=== PATIENT | female | born 1935 | race Caucasian/White ===

== ENCOUNTER 2016-10-16 19:14 | Emergency (ER) | payer OTHER ==
[~2016-10-16] VITALS: Ht 149.9 cm; Wt 64.0 kg
[2016-10-16] MEDS ORDERED: CALTRATE 600 +1 EACH PO (19:56)
[2016-10-16] MEDS ORDERED: VITAMIN D1000 UNIT PO (19:57)
[2016-10-16] MEDS ORDERED: ASPIRIN81 M4 PO (19:57)
--- NOTE | 2016-10-16 21:58 | ED SKIN/ALLERGY COMPLAINT ---
History of Present Illness General Chief Complaint: Animal/Insect Bite Stated Complaint: TICK BITE Source: patient, old records Exam Limitations: no limitations Vital Signs & Intake/Output Vital Signs & Intake/Output Vital Signs Date Time Temp Pulse Resp B/P B/P Pulse O2 O2 Flow FiO2 Mean Ox Delivery Rate 10/17 2215 97.8 88 22 168/80 96 10/16 1953 98.6 92 20 171/90 98 Room Air Allergies Coded Allergies: No Known Allergies (10/16/16) Reconcile Medications Aspirin (Aspirin*) 81 MG TAB.CHEW 1 TAB PO DAILY HEART HEALTH (Reported) Calcium Carbonate/Vitamin D3 (Caltrate 600 + D Tablet) 600 MG-800 TABLET 1 TAB PO DAILY SUPPLEMENT (Reported) Cholecalciferol (Vitamin D3) (Vitamin D) 1,000 UNIT TABLET 1 TAB PO DAILY SUPPLEMENT (Reported) Triage Note: TRIAGE: PT TO ER C/C TICK BITE TO "PRIVATE AREA", NOTICED APPROX 17:00 TONIGHT. UNSURE IF SHE WAS ABLE TO REMOVE IT ALL. Triage Nurses Notes Reviewed? yes Onset: Abrupt Duration: day(s): (1), constant Timing: recent history Severity: mild Severity Numbers: 2 Location: genitalia Possible Factors: tick bite No Modifying Factors: none Associated Symptoms: denies HPI: 81-year-old female presents emergency room status post sustaining tick bite to the right side of her genitalia today. She was outside doing her work. She is not sure if she removed the tick in its entirety.. She denies any other complaints she denies noting any other rashes to her skin fever chills body aches no modifying factors or associated symptoms. No urinary complaints. Past History Travel History Traveled to [place] past 21 day No Medical History Any Pertinent Medical History? 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 No Review of Systems Review of Systems Constitutional: Reports: see HPI. All Other Systems: Reviewed and Negative Comments Review of systems: See HPI, All other systems negative. Constitutional, no chills no fever, no malaise HEENT: No visual changes no sore throat no congestion Cardiovascular: No chest pain , no palpitation Skin: no rashes, no change in skin Respiratory: No dyspnea no cough no sputu GI: No nausea no vomiting, no diarrhea : No dysuria No hematuria, no frequency, no discharge Muscle skeletal: No joint pain, no joint swelling, no back pain, no neck pain, Neurologic: No numbness, no headache Psych: No stress Heme/endocrine: No bruising Immunology: No lymphadenopathy Physical Exam Physical Exam General Appearance: well developed/nourished, no apparent distress, alert, awake Comments: Well-developed well-nourished patient in no apparent distress. HEENT: Atraumatic, extraocular motion intact Neck: Supple, FROM Back: FROM Cardiovascular: Regular rate and rhythms no murmurs rubs or gallops, Respiratory: No respiratory distress. Patient speaking in full complete sentences. Breath sounds clear to auscultation bilaterally: NO W/R/R Extremities: full range of motion Neuro: awake, alert, and oriented to person, place and time. There were no obvious focal neurologic abnormalities. 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 Progress Differential Diagnosis: abscess/cellulitis, allergic reaction, contact dermatitis, lyme disease, shingles, herpes Plan of Care: Current Medications Sig/Barbi Start time Last Medication Dose Stop Time Status Admin Doxycycline Hyclate 200 MG ONCE ONE 10/16 2214 AC (Vibramycin) 10/17 2215 Patient medicated with prophylactic doxycycline discussed with her plan of care return precautions she'll follow with her primary care physician she feels comfortable plan cleared for discharge (JACK VARGAS) Departure Departure Time of Disposition: 2202 Disposition: HOME OR SELF CARE Condition: Stable Clinical Impression Primary Impression: Tick bite Referrals: MACI ZAYAS,KARLENE Huynh (PCP/Family) Additional Instructions: As discussed you have been treated prophylactically with doxycycline for tick bite. Follow-up with her primary care physician and return to ER if he develop fever chills joint pain body aches or any other concerns. Departure Forms: Customer Survey General Discharge Information
[2016-10-16 22:16] VITALS: BP 168/80
== END 2016-10-16 22:25 ==
LOC: ERH 19:14
DX: S30.866A Insect bite (nonvenomous) of unspecified external genital organs, female, initial encounter (principal); W57.XXXA Bitten or stung by nonvenomous insect and other nonvenomous arthropods, initial encounter; Y93.89 Activity, other specified; Y92.9 Unspecified place or not applicable

== ENCOUNTER 2017-08-22 12:31 | Inpatient (IN) | payer OTHER ==
[~2017-08-22] VITALS: Ht 149.9 cm; Wt 65.1 kg
[~2017-08-22 12:31] MED LIST: ASPIRIN81 M4 PO; CALTRATE 600 +1 EACH PO; VITAMIN D1000 UNIT PO
[2017-08-22 13:07] LABS: ABSOLUTE BASOPHIL COUNT 0 /CUMM (0.0-0.2); ABSOLUTE EOSINOPHIL COUNT 0.2 /CUMM (0.0-0.7); ABSOLUTE GRANULOCYTE CT 8.1 /CUMM (1.4-6.5); ABSOLUTE LYMPH COUNT 0.7 /CUMM (1.2-3.4); BASOPHIL % 0.2 % (0.0-2.0); EOSINOPHIL % 2.2 % (0-5); GRANULOCYTE % 80.4 % (42.2-75.2); HEMATOCRIT 40.5 % (37-47); MEAN CORPUSCULAR HGB CONC 33.6 G/DL (33.0-37.0); MEAN CORPUSCULAR VOLUME 98.2 FL (81.0-99.0); MEAN PLATELET VOLUME 8.5 FL (7.4-10.4); PLATELET COUNT 257 /CUMM (130-400); RBC DISTRIBUTION WIDTH 14.4 % (11.5-14.5); RED BLOOD CELL CT 4.12 /CUMM (4.20-5.40)
[2017-08-22 13:14] LABS: PT 15.6 SEC (9.4-12.5); PTT 33 SEC (25-37)
[2017-08-22] MEDS ORDERED: TEGRETOL200 M1 PO ×2 (13:17→13:19)
--- NOTE | 2017-08-22 13:18 | ED CARDIAC/CP/PALPITATIONS ---
History of Present Illness General Chief Complaint: General Adult Stated Complaint: SIB DR GARCIA FOR NEW ONSET AFIB Source: patient, family Exam Limitations: no limitations Allergies Coded Allergies: No Known Allergies (10/16/16) Reconcile Medications Aspirin (Aspirin*) 81 MG TAB.CHEW 1 TAB PO DAILY HEART HEALTH (Reported) Calcium Carbonate/Vitamin D3 (Caltrate 600 + D Tablet) 600 MG-800 TABLET 1 TAB PO DAILY SUPPLEMENT (Reported) Carbamazepine (Tegretol) 200 MG TABLET 0.5 TAB PO DAILY UNKNOWN (Reported) Carbamazepine (Tegretol) 200 MG TABLET 1 TAB PO QPM UNKNOWN (Reported) Cholecalciferol (Vitamin D3) (Vitamin D) 1,000 UNIT TABLET 1 TAB PO DAILY SUPPLEMENT (Reported) Cyanocobalamin (Vitamin B-12) 1,000 MCG TABLET 1 TAB PO DAILY VITAMIN SUPPORT (Reported) Denosumab (Prolia) 60 MG/ML SYRINGE 1 INJ IM UNKNOWN (Reported) [place]-3 Fatty Acids/Fish Oil (Fish Oil 1,000 MG Capsule) 340 MG-1,000 MG CAPSULE 1 CAP PO DAILY SUPPLEMENT (Reported) Vit A/Vit C/Vit E/Zinc/Copper (Preservision Areds Tablet) 7,160-113 TABLET 1 TAB PO BID EYE (Reported) Triage Note: SIB DR GARCIA FOR NEW ONSET A FIB. PT DENIES CP/SOB. RECENT SWELLING IN RIGHT FOOT Triage Nurses Notes Reviewed? yes Onset: Abrupt Duration: day(s):, constant Timing: recent history Quality/Severity: moderate Radiation: no radiation HPI: 81-year-old female comes into the emergency room sent in by her central control room operator Dr. Garcia for new onset A. fib. She reports that she's been increasingly weak. She has some swelling to her right leg. Denies any current chest pain. Denies any shortness of breath. Denies any fever chills vomiting. (Oliver Melgoza) Vital Signs & Intake/Output Vital Signs & Intake/Output Vital Signs Date Time Temp Pulse Resp B/P B/P Pulse O2 O2 Flow FiO2 Mean Ox Delivery Rate 08/22 1510 110 114/65 08/22 1500 127 142/75 08/22 1449 123 08/22 1436 132 142/75 08/22 1343 139 113/56 08/22 1237 98.1 104 18 137/80 98 Room Air (Niurka ZAYAS,Yahir Huynh) Past History Travel History Traveled to [place] past 21 day No Medical History Any Pertinent Medical History? 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 No (Oliver Melgoza) Review of Systems Review of Systems Constitutional: Reports: no symptoms. EENTM: Reports: no symptoms. Respiratory: Reports: see HPI. Cardiovascular: Reports: see HPI. GI: Reports: no symptoms. Genitourinary: Reports: no symptoms. Musculoskeletal: Reports: see HPI. Skin: Reports: no symptoms. Neurological/Psychological: Reports: no symptoms. Hematologic/Endocrine: Reports: no symptoms. Immunologic/Allergic: Reports: no symptoms. All Other Systems: Reviewed and Negative (Oliver Melgoza) Physical Exam Physical Exam General Appearance: well developed/nourished, alert, awake Head: atraumatic Eyes: Bilateral: normal appearance. Ears, Nose, Throat: normal ENT inspection, hearing grossly normal Neck: normal inspection Respiratory: no respiratory distress Cardiovascular: tachycardia, irregularly irregular Gastrointestinal: soft Back: normal inspection Extremities: normal inspection, no edema Neurologic/Psych: awake, alert, oriented x 3, normal gait Skin: intact, normal color Core Measures ACS in differential dx? Yes CVA/TIA Diagnosis No Sepsis Present: No Sepsis Focused Exam Completed? No (Oliver Melgoza) Progress Differential Diagnosis: AMI, aortic dissection, atrial fibrillation, cholecystitis, costochondritis, hyperkalemia, intracranial hemorrhage, musculoskeletal pain, myocarditis, pancreatitis, pericarditis, pneumonia, pneumothorax, pulmonary embolism, PVCs/PACs, unstable angina, V-fib/V-Tach, WPW syndrome Diagnostic Imaging: Viewed by Me: Radiology Read, CT Scan, Ultrasound. Discussed w/RAD: Radiology Read, CT Scan, Ultrasound. Radiology Impression: PATIENT: LASHAE CROWE PRESENT AGE: 81 PATIENT ACCOUNT NO: [id number] : 35 LOCATION: [facility] ORDERING PHYSICIAN: Oliver LAINEZ SERVICE DATE: 08/22/17 EXAM TYPE: RAD - XRY-PORTABLE CHEST XRAY EXAMINATION: XR PORTABLE CHEST CLINICAL INFORMATION: Shortness of breath. Atrial fibrillation. COMPARISON: None TECHNIQUE: Portable frontal view of the chest was obtained. FINDINGS: The cardiac silhouette is moderately enlarged. There is uncoiling and atherosclerotic calcification of the aorta. There is cephalization of the pulmonary vasculature. No definite pneumonia. No pneumothorax or large pleural effusion. IMPRESSION: Moderately enlarged cardiac silhouette reflecting either cardiomegaly or pericardial effusion. Tortuous uncoiled thoracic aorta with calcification of the aortic knob. Cephalization of the pulmonary vasculature. DICTATED BY: Adan Hernandez MD DATE/TIME DICTATED:08/22/171356 NEUROLOGY DIRECTOR:RADHA DATE/TIME TRANSCRIBED:08/22/171356 CONFIDENTIAL, DO NOT COPY WITHOUT APPROPRIATE AUTHORIZATION. <Electronically signed in Other Vendor System> SIGNED BY: Adan Hernandez MD 08/22/17 1403, PATIENT: LASHAE CROWE PRESENT AGE: 81 PATIENT ACCOUNT NO: [id number] : 35 LOCATION: [facility] ORDERING PHYSICIAN: Oliver LAINEZ SERVICE DATE: 08/22/17 EXAM TYPE : US - US-UNILATERAL VENOUS DOPPLER EXAMINATION: US TRIPLEX LOWER EXTREMITY, RIGHT CLINICAL INFORMATION: Right lower extremity pain and swelling. COMPARISON: None TECHNIQUE: Color-flow triplex imaging with spectral analysis and compression Doppler were performed on the lower extremity. FINDINGS: There is thrombus in the calf veins extending into the popliteal vein and femoral vein in the distal thigh. The remainder of the femoral vein, the common femoral vein and profunda femoris vein show respiratory variation, normal compression and augmented flow. The visualized common femoral vein and uninvolved superficial femoral vein appear normal. There is no Bradshaw's cyst. IMPRESSION: Acute DVT in the calf veins extending into the popliteal vein and into the femoral vein, residential up the thigh. This critical result was discussed with FATOU Ang at 3:10 PM on the day of the exam and it was ascertained that the content and urgency of the report was understood at the time of direct communication. DICTATED BY: Manjit Frost MD DATE/TIME DICTATED:08/22/171500 NEUROLOGY DIRECTOR:RADHA DATE/TIME TRANSCRIBED:08/22/171500 CONFIDENTIAL, DO NOT COPY WITHOUT APPROPRIATE AUTHORIZATION. <Electronically signed in Other Vendor System> SIGNED BY: Manjit Frost MD 08/22/171525, PATIENT: LASHAE CROWE PRESENT AGE: 81 PATIENT ACCOUNT NO: [id number] : 35 LOCATION: [facility] ORDERING PHYSICIAN: Oliver LAINEZ SERVICE DATE: 08/22/17 EXAM TYPE: CAT - CTA CHEST-PULMONARY EMBOLISM EXAMINATION: CT ANGIOGRAM CHEST WITH AND WITHOUT CONTRAST (CT PULMONARY ANGIOGRAM FOR PE) CLINICAL INFORMATION: Shortness of breath, new atrial fibrillation. COMPARISON: 08/22/2017 chest x-ray. TECHNIQUE: Prior to contrast administration, noncontrast localization images were obtained. Subsequently, multidetector volumetric imaging was performed from the thoracic inlet to below the diaphragms following the administration of 95 mL Optiray 320 intravenous contrast. No contrast reaction reported. Sagittal, coronal, and MIP oblique sagittal reformatted images were obtained on the CT workstation, uploaded to PACS, and reviewed. Total exam dose-length product 240.20 mGy-cm. FINDINGS: QUALITY OF STUDY/ CONTRAST BOLUS: Suboptimal PULMONARY ARTERIES: No central or segmental pulmonary emboli. THORACIC AORTA: No aneurysm or dissection. Atherosclerotic calcifications of the thoracic aorta noted. LUNG: No focal consolidation, nodules or masses. Mild atelectatic changes at the right lung base and the medial left lower lobe noted. PLEURA: Trace right-sided pleural effusion. MEDIASTINUM: There is [id number] cardiomegaly. No pericardial effusion. There is a 1.1 cm right hilar lymph node as seen on axial image 166 from series 2 and coronal image 48. A 0.9 cm subcarinal lymph node is also present. No evidence of septal bowing or right heart strain. There are multiple small hypodense nodules in bilateral thyroid lobes. CHEST WALL/AXILLA: No axillary or internal mammary lymphadenopathy. OSSEOUS STRUCTURES: There is mild compression deformity of T11 vertebral body, better seen on sagittal image 49. Kyphotic changes of the spine also noted. UPPER ABDOMEN: A moderate to large size hiatal hernia is present. 2-3 calcified gallstones are present. The gallbladder is contracted. There is dilatation of CBD with maximum transverse diameter of 11 mm at the level of head of pancreas. No calcified CBD stone. Mild dilatation of the pancreatic duct is also noted. The region of the ampulla of Vater is not imaged in this exam. No reflux of contrast into the hepatic veins to suggest elevated right heart pressures. IMPRESSION: Suboptimal exam. Negative for PE. No evidence of aortic dissection or aneurysm. Mildly enlarged right hilar lymph node. Trace right-sided pleural effusion. Cardiomegaly. Moderate to large-sized hiatal hernia. Gallstones. Partial visualization of dilatation of CBD and main pancreatic duct. The region of the ampulla is not imaged in this exam. VTE: negative DICTATED BY: Jennifer Webb MD DATE/TIME DICTATED:08/22/171603 NEUROLOGY DIRECTOR:RADHA DATE/TIME TRANSCRIBED:08/22/171603 CONFIDENTIAL, DO NOT COPY WITHOUT APPROPRIATE AUTHORIZATION. <Electronically signed in Other Vendor System> SIGNED BY: Jennifer Webb MD 08/22/17 1657 Initial ED EKG: rate (140), AFIB, LBBB (Oliver Melgoza) Plan of Care: Orders Procedure Date/time Status Heart Healthy Diet 08/23 B Active Misc Message 08/22 1624 Active ED Holding Orders 08/22 1624 Active Admit to inpatient 08/22 1624 Active Vital Signs 08/22 1624 Active Code Status 08/22 1624 Active THYROID STIMULATING HORMONE 08/22 1250 Complete TROPONIN LEVEL 08/22 1250 Complete PARTIAL THROMBOPLASTIN TIME 08/22 1250 Complete PROTHROMBIN TIME 08/22 1250 Complete COMPREHENSIVE METABOLIC PANEL 08/22 1250 Complete CBC WITHOUT DIFFERENTIAL 08/22 1250 Complete EKG 08/22 1238 Active Current Medications Sig/Barbi Start time Last Medication Dose Stop Time Status Admin Diltiazem HCl 125 MG Q24H 08/22 1715 UNVr (Cardizem DRIP) Sodium Chloride 100 ML (Normal Saline 0.9%) Heparin Sodium 25,000 UNIT Q24H 08/22 1445 UNVr 08/22 (Porcine) 1507 (Heparin) Sodium Chloride 500 ML Laboratory Tests 08/22/17 1255: Anion Gap 11, Estimated GFR > 60, BUN/Creatinine Ratio 16.7, Glucose 109 H, Calcium 8.9, Total Bilirubin 0.8, AST 29, ALT 39, Alkaline Phosphatase 75, Troponin I 0.10, Total Protein 6.3, Albumin 3.0 L, Globulin 3.3, Albumin/ Globulin Ratio 0.9 L, TSH 1.590, PT 15.6 H, INR 1.43 H, APTT 33, CBC w Diff NO MAN DIFF REQ, RBC 4.12 L, MCV 98.2, MCH 33.0 H, MCHC 33.6, RDW 14.4, MPV 8.5, Gran % 80.4 H, Lymphocytes % 7.4 L, Monocytes % 9.8 H, Eosinophils % 2.2 , Basophils % 0.2, Absolute Granulocytes 8.1 H, Absolute Lymphocytes 0.7 L, Absolute Monocytes 1.0 H, Absolute Eosinophils 0.2, Absolute Basophils 0 (Niurka ZAYAS,Yahir Huynh) Departure Departure Disposition: STILL A PATIENT Condition: Stable Clinical Impression Primary Impression: Rapid atrial fibrillation Secondary Impressions: Deep vein thrombosis (DVT) of right lower extremity, New onset a-fib Referrals: Carrie ZAYAS,Fatuma Huynh (PCP/Family) Departure Forms: Customer Survey General Discharge Information Admission Note Spoke With: Bee ZAYAS PHD,Francisco Hendricks Documentation of Exam: Documentation of any treatments & extenuating circumstances including Concerns Regarding Discharge (functional status, medication knowledge or non-compliance, living conditions, etc.) that warrant an admission rather than observation: Patient will require IV heparin. Rate control. Cardiac consultation. Vascular consultation. Cardizem drip. Cardiac telemetry. Serial blood work. Echocardiogram. (Oliver Melgoza) PA/NAIL MILL WORKER Co-Sign Statement Statement: ED Attending supervision documentation- [X] I saw and evaluated the patient. I have also reviewed all the pertinent lab results and diagnostic results. I agree with the findings and the plan of care as documented in the PA's/NAIL MILL WORKER's documentation. Patient presents for evaluation of an irregular heartbeat (she was sent in by her central control room operator Dr. Garcia).. Physical examination reveals an irregular heart rhythm but otherwise no respiratory distress. [] I have reviewed the ED Record and agree with the PA's/NAIL MILL WORKER's documentation. [] Additions or exceptions (if any) to the PAs/NAIL MILL WORKER's note and plan are summarized below: [] (Niurka ZAYAS,Yahir Huynh) Critical Care Note Critical Care Note Critical Care Time: 30-74 min (45) (Mynor LAINEZ,Oliver)
[2017-08-22] MEDS ORDERED: FISH OIL 1,0001 EACH PO (13:19)
[2017-08-22] MEDS ORDERED: VITAMIN B-121000 MC3 PO (13:20)
[2017-08-22] MEDS ORDERED: PRESERVISION A1 EACH PO (13:20)
[2017-08-22] MEDS ORDERED: PROLIA60 MG/1 ML IM (13:22)
--- NOTE | 2017-08-22 14:03 | RADIOLOGY REPORT ---
EXAMINATION: XR PORTABLE CHEST CLINICAL INFORMATION: Shortness of breath. Atrial fibrillation. COMPARISON: None TECHNIQUE: Portable frontal view of the chest was obtained. FINDINGS: The cardiac silhouette is moderately enlarged. There is uncoiling and atherosclerotic calcification of the aorta. There is cephalization of the pulmonary vasculature. No definite pneumonia. No pneumothorax or large pleural effusion. IMPRESSION: Moderately enlarged cardiac silhouette reflecting either cardiomegaly or pericardial effusion. Tortuous uncoiled thoracic aorta with calcification of the aortic knob. Cephalization of the pulmonary vasculature.
--- NOTE | 2017-08-22 15:26 | ULTRASOUND REPORT ---
EXAMINATION: US TRIPLEX LOWER EXTREMITY, RIGHT CLINICAL INFORMATION: Right lower extremity pain and swelling. COMPARISON: None TECHNIQUE: Color-flow triplex imaging with spectral analysis and compression Doppler were performed on the lower extremity. FINDINGS: There is thrombus in the calf veins extending into the popliteal vein and femoral vein in the distal thigh. The remainder of the femoral vein, the common femoral vein and profunda femoris vein show respiratory variation, normal compression and augmented flow. The visualized common femoral vein and uninvolved superficial femoral vein appear normal. There is no Bradshaw's cyst. IMPRESSION: Acute DVT in the calf veins extending into the popliteal vein and into the femoral vein, senior care up the thigh. This critical result was discussed with FATOU Ang at 3:10 PM on the day of the exam and it was ascertained that the content and urgency of the report was understood at the time of direct communication.
--- NOTE | 2017-08-22 16:57 | CT SCAN REPORT ---
EXAMINATION: CT ANGIOGRAM CHEST WITH AND WITHOUT CONTRAST (CT PULMONARY ANGIOGRAM FOR PE) CLINICAL INFORMATION: Shortness of breath, new atrial fibrillation. COMPARISON: 08/22/2017 chest x-ray. TECHNIQUE: Prior to contrast administration, noncontrast localization images were obtained. Subsequently, multidetector volumetric imaging was performed from the thoracic inlet to below the diaphragms following the administration of 95 mL Optiray 320 intravenous contrast. No contrast reaction reported. Sagittal, coronal, and MIP oblique sagittal reformatted images were obtained on the CT workstation, uploaded to PACS, and reviewed. Total exam dose-length product 240.20 mGy-cm. FINDINGS: QUALITY OF STUDY/CONTRAST BOLUS: Suboptimal PULMONARY ARTERIES: No central or segmental pulmonary emboli. THORACIC AORTA: No aneurysm or dissection. Atherosclerotic calcifications of the thoracic aorta noted. LUNG: No focal consolidation, nodules or masses. Mild atelectatic changes at the right lung base and the medial left lower lobe noted. PLEURA: Trace right-sided pleural effusion. MEDIASTINUM: There is [id number] cardiomegaly. No pericardial effusion. There is a 1.1 cm right hilar lymph node as seen on axial image 166 from series 2 and coronal image 48. A 0.9 cm subcarinal lymph node is also present. No evidence of septal bowing or right heart strain. There are multiple small hypodense nodules in bilateral thyroid lobes. CHEST WALL/AXILLA: No axillary or internal mammary lymphadenopathy. OSSEOUS STRUCTURES: There is mild compression deformity of T11 vertebral body, better seen on sagittal image 49. Kyphotic changes of the spine also noted. UPPER ABDOMEN: A moderate to large size hiatal hernia is present. 2-3 calcified gallstones are present. The gallbladder is contracted. There is dilatation of CBD with maximum transverse diameter of 11 mm at the level of head of pancreas. No calcified CBD stone. Mild dilatation of the pancreatic duct is also noted. The region of the ampulla of Vater is not imaged in this exam. No reflux of contrast into the hepatic veins to suggest elevated right heart pressures. IMPRESSION: Suboptimal exam. Negative for PE. No evidence of aortic dissection or aneurysm. Mildly enlarged right hilar lymph node. Trace right-sided pleural effusion. Cardiomegaly. Moderate to large-sized hiatal hernia. Gallstones. Partial visualization of dilatation of CBD and main pancreatic duct. The region of the ampulla is not imaged in this exam. VTE: negative
--- NOTE | 2017-08-22 18:18 | History & Physical ---
See Addendum Magaly Bonds 08/22/171811: General Information and HPI MD Statement: I have seen and personally examined LASHAE CROWE and documented this H&P. The patient is a 81 year old F who presented with a patient stated chief complaint of [New onset A-fib]. Source of Information: patient, old records Exam Limitations: no limitations History of Present Illness: Ms. Crowe 81-year-old female with PMH of osteoporosis, trigeminal neuralgia currently on carbamazepine, macular degeneration, presented to ER with chief complaint of right leg swelling (noticed by her daughter) starting last Tuesday prior to this admission, and lightheadedness, and chest discomfort, however 89 and shortness of breath. Patient follow-up with Dr. Gamboa, and was found to have irregularly irregular heart rhythm was possibly consistent with new onset atrial fibrillation which is confirmed by EKG in office, and was subsequently sent to the ER for further evaluation. Patient denied fever/night sweat/weight change/mood change/insomnia, dietary/ appetite change. Patient denied cough/SOB/exercise intolerance/Abdominal pain, bowel movement/ urinary abnormality, or other skin/musculoskeletal/neurological disorders. At baseline patient was independent of ADLs and IADLs. Allergies/Medications Allergies: Coded Allergies: No Known Allergies (10/16/16) Home Med list Aspirin (Aspirin*) 81 MG TAB.CHEW 1 TAB PO DAILY HEART HEALTH (Reported) Calcium Carbonate/Vitamin D3 (Caltrate 600 + D Tablet) 600 MG-800 TABLET 1 TAB PO DAILY SUPPLEMENT (Reported) Carbamazepine (Tegretol) 200 MG TABLET 0.5 TAB PO DAILY UNKNOWN (Reported) Carbamazepine (Tegretol) 200 MG TABLET 1 TAB PO QPM UNKNOWN (Reported) Cholecalciferol (Vitamin D3) (Vitamin D) 1,000 UNIT TABLET 1 TAB PO DAILY SUPPLEMENT (Reported) Cyanocobalamin (Vitamin B-12) 1,000 MCG TABLET 1 TAB PO DAILY VITAMIN SUPPORT (Reported) Denosumab (Prolia) 60 MG/ML SYRINGE 1 INJ IM UNKNOWN (Reported) [place]-3 Fatty Acids/Fish Oil (Fish Oil 1,000 MG Capsule) 340 MG-1,000 MG CAPSULE 1 CAP PO DAILY SUPPLEMENT (Reported) Vit A/Vit C/Vit E/Zinc/Copper (Preservision Areds Tablet) 7,160-113 TABLET 1 TAB PO BID EYE (Reported) Past History Travel History Traveled to [place] past 21 day No Medical History Neurological: NONE EENT: macular degeneration Cardiovascular: NONE Respiratory: NONE Gastrointestinal: NONE Hepatic: NONE Renal: NONE Musculoskeletal: osteoporosis Psychiatric: NONE Endocrine: NONE Blood Disorders: NONE Cancer(s): NONE 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 Exam & Diagnostic Data Last 24 Hrs of Vital Signs/I&O Vital Signs Date Time Temp Pulse Resp B/P B/P Pulse O2 O2 Flow FiO2 Mean Ox Delivery Rate 08/22 1510 110 114/65 08/22 1500 127 142/75 08/22 1449 123 08/22 1436 132 142/75 08/22 1343 139 113/56 08/22 1237 98.1 104 18 137/80 98 Room Air Intake & Output 08/22 1600 08/22 0800 08/22 0000 Intake Total Output Total 250 Balance -250 Output, Urine 250 Patient 63.503 kg Weight Weight Reported by Patient Measurement Method Physical Exam General Appearance Alert, Oriented X3, Cooperative, No Acute Distress Skin No Rashes, No Breakdown, No Significant Lesion Skin Temp/Moisture Exam: Warm/Dry Sepsis Skin Exam (color): Normal for Ethnicity HEENT Atraumatic, PERRLA, EOMI Neck Supple, No JVD Cardiovascular Irregularly irregualr tachycardia Lungs Clear to Auscultation, Normal Air Movement Abdomen Normal Bowel Sounds, Soft, No Tenderness Neurological Normal Speech, Strength at 5/5 X4 Ext Extremities No Edema, Normal Pulses, RLE calf swelling however not tender upon pressing Last 24 Hrs of Labs/Edwin: Laboratory Tests 08/22/17 1255: Anion Gap 11, Estimated GFR > 60, BUN/Creatinine Ratio 16.7, Glucose 109 H, Calcium 8.9, Total Bilirubin 0.8, AST 29, ALT 39, Alkaline Phosphatase 75, Troponin I 0.10, Total Protein 6.3, Albumin 3.0 L, Globulin 3.3, Albumin/ Globulin Ratio 0.9 L, TSH 1.590, PT 15.6 H, INR 1.43 H, APTT 33, CBC w Diff NO MAN DIFF REQ, RBC 4.12 L, MCV 98.2, MCH 33.0 H, MCHC 33.6, RDW 14.4, MPV 8.5, Gran % 80.4 H, Lymphocytes % 7.4 L, Monocytes % 9.8 H, Eosinophils % 2.2 , Basophils % 0.2, Absolute Granulocytes 8.1 H, Absolute Lymphocytes 0.7 L, Absolute Monocytes 1.0 H, Absolute Eosinophils 0.2, Absolute Basophils 0 Assessment/Plan Assessment: Ms. Crowe 81-year-old female with PMH of osteoporosis, trigeminal neuralgia currently on carbamazepine, macular degeneration, presented to ER with chief complaint of right leg swelling (noticed by her daughter) starting last Tuesday prior to this admission, and lightheadedness, and chest discomfort, however 89 and shortness of breath. Patient follow-up with Dr. Gamboa, and was found to have irregularly irregular heart rhythm was possibly consistent with new onset atrial fibrillation which is confirmed by EKG in office, and was subsequently sent to the ER for further evaluation. On admission, Vitals: Stable, BP 114/65 -CBC: Unremarkable, PT/INR 15.6/1.43 -BMP: Unremarkable -CXR: Moderately enlarged cardiac silhouette reflecting either cardiomegaly or pericardial effusion. Tortuous uncoiled thoracic aorta with calcification of the aortic knob. Cephalization of the pulmonary vasculature. -RLE Dopper: Acute DVT in the calf veins extending into the popliteal vein and into the femoral vein, fdc up the thigh. -CTA: negative for PE -EKG: A-fib tachy w/ LBBB -Interventions in ER: Cardizem 10 mg IV push 2, heparin 4000 units IV 1 Assessment: Ms. Crowe 81-year-old female with PMH of osteoporosis, trigeminal neuralgia currently on carbamazepine, macular degeneration, presented to ER for further evaluation of new onset A. fib from Dr. Gamboa's office, and was found to have incidental DVT on right lower extremity, recent concerns of possible PE as well given patient's new onset A. fib without any particular triggers. Problem list #RLE DVT #New-onset A. fib #Past medical history Plan - Admit to telemetry for continuous telemetry monitoring - Trend EKG/Trop x 2 to peak. neuralgia of heart rate DVT prophylaxis Heparin drip Heart healthy diet DNR/DNI As Ranked By This Provider Problem List: 1. New onset a-fib Core Measures/Misc (02/13) Acute Coronary Syndrome ACS Diagnosis: No Congestive Heart Failure Congestive Heart Failure Diagnosis No Cerebrovascular Accident CVA/TIA Diagnosis: No VTE (View Protocol) VTE Risk Factors Age>40 No Mechanical VTE Prophylaxis d/t DVT (suspected/known) No VTE Pharm Prophylaxis d/t NA PharmProphylax ordered Sepsis (View protocol) Sepsis Present: No Sudhir White MD 08/22/17 5013: Resident Review Statement Resident Statement: examined this patient, discussed with medical intern Other Findings: Patient is an 81-year-old female with significant past medical history of trigeminal neuralgia(June 2016, on carbamazepine), osteoporosis(on Prolia), macular degeneration( preserved vision), sent by Dr. Gamboa for management of acute onset atrial fibrillation. History is taken from the patient. According to her she was completely healthy until June, when she was diagnosed as having trigeminal neuralgia and started on carbamazepine. She was feeling woozy although able to do all her household activity. She noticed swelling on his right foot on Tuesday. That was not affecting her daily activity though she was feeling charley horse. She talked to Dr. Gamboa over the phone, who advised to visit him. At the Dr. Gamboa's office EKG was done which show evidence of new onset atrial fibrillation. Patient denies any chest pain, shortness of breath, palpitation, dizziness, lightheadedness,trauma. She does feels generalized weakness denies for any weakness in any part of the body. Of note patient was also complaining of having cold around 15 days ago,which she treated by herself by using Delsym 12 hours. Personal history-She is very active at baseline, lives at a elderly home at [facility] [place], denies smoking, alcohol use or illicit drug abuse. Family history - father had history of lung cancer secondary to smoking and at the age of 69, mother had history of diabetes and at the age of 98 year. ED course- Vital signs-temperature 98.1, pulse 104, respiratory 18, blood pressure 137/80, SPO2 98% on room air EKG showed-left bundle branch block, heart rate of 110, atrial fibrillation.She was given IV Cardizem 125 mg and heparin drip. Blood work obtained showed -WBC 10.0, RBC 4.12, hemoglobin 13.6, platelet count 257, serum sodium 137, potassium 3.7, chloride 99, anion gap 11, BUN 10, creatinine 0.6, glucose 109, calcium 8.9, total bilirubin 0.8, AST 29, ALT 39, alkaline phosphatase 75, troponin I 0.10, total protein 6.3, albumin 3.0, globulin 3.3, PT/INR 15.6/1.43, APTT 33. Chest x-ray - * Moderately enlarged cardiac silhouette reflecting either cardiomegaly or pericardial effusion. * Tortuous uncoiled thoracic aorta with calcification of the aortic knob. * Cephalization of the pulmonary vasculature. Color Doppler - right lower extremity-acute DVT in the calf vein extending from popliteal vein into the femoral vein fdc upto the thigh CTA -Suboptimal exam. Negative for PE.No evidence of aortic dissection or aneurysm.Mildly enlarged right hilar lymph node.Trace right-sided pleural effusion.Cardiomegaly.Moderate to large-sized hiatal hernia.Gallstones.Partial visualization of dilatation of CBD and main pancreatic duct. The region of the ampulla is not imaged in this exam. Assessment and plan- New onset atrial fibrillation - * We will admit the patient to telemetry floor * We will start patient on injection Cardizem drip * We will continue patient on injection heparin * We will watch for the bleeding * Troponins and EKG till get peak. * We will follow the echocardiogram Right lower extremity DVT * We will continue IV heparin drip * keep lower leg elevated * Pain medication according to pain scale. History of trigeminal neuralgia * As per Dr. Gamboa will change it to Tegretol ER 200 mg daily for next 3-6 months Code status-full code DVT prophylaxis-heparin drip Diet -Heart healthy diet
--- NOTE | 2017-08-22 18:48 | Cons- Cardiology ---
General Information and HPI Consulting Request Date of Consult: 08/22/17 Requested By: ER History of Present Illness: The patient is a 81 year old female who presents with facial pain. Noemy is an 81 year old female with no significant prior medical history. I initially saw this patient for a severe discomfort over her right face in the territory of the trigeminal nerve. The discomfort was described as a sharp, severe discomfort that was exacerbated by talking, eating and touching. She did have this once before and it fortunately resolved on its own at that time. The patient has been seeing a dentist who has not been able to find a dental reason for the discomfort. I felt that she had trigeminal neuralgia and started her on Carbamazepine and this symptom resolved. At baseline, Noemy is otherwise active and can walk briskly and garden. Over the past week she noted right leg swelling, lightheadedness and chest discomfort. She denies shortness of breath but she states that she is not doing anything lately. She does have some arthritic discomfort in her knees. In the office the patient was noted to have an irregularly irregular heart rhythm with fast rate consistent with atrial fibrillation that was confirmed by an ECG. Allergies/Medications Allergies: Coded Allergies: No Known Allergies (10/16/16) Home Med List: Aspirin (Aspirin*) 81 MG TAB.CHEW 1 TAB PO DAILY HEART HEALTH (Reported) Calcium Carbonate/Vitamin D3 (Caltrate 600 + D Tablet) 600 MG-800 TABLET 1 TAB PO DAILY SUPPLEMENT (Reported) Carbamazepine (Tegretol) 200 MG TABLET 0.5 TAB PO DAILY UNKNOWN (Reported) Carbamazepine (Tegretol) 200 MG TABLET 1 TAB PO QPM UNKNOWN (Reported) Cholecalciferol (Vitamin D3) (Vitamin D) 1,000 UNIT TABLET 1 TAB PO DAILY SUPPLEMENT (Reported) Cyanocobalamin (Vitamin B-12) 1,000 MCG TABLET 1 TAB PO DAILY VITAMIN SUPPORT (Reported) Denosumab (Prolia) 60 MG/ML SYRINGE 1 INJ IM UNKNOWN (Reported) [place]-3 Fatty Acids/Fish Oil (Fish Oil 1,000 MG Capsule) 340 MG-1,000 MG CAPSULE 1 CAP PO DAILY SUPPLEMENT (Reported) Vit A/Vit C/Vit E/Zinc/Copper (Preservision Areds Tablet) 7,160-113 TABLET 1 TAB PO BID EYE (Reported) Review of Systems Review of Systems: A review of systems is unremarkble. 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 Mother: diabetes, Father: of cancer. Psychosocial History Smoking Status: Never Smoked ETOH Use: denies use Illicit Drug Use: denies illicit drug use Exam & Diagnostic Data Vital Signs and I&O Vital Signs Date Time Temp Pulse Resp B/P B/P Pulse O2 O2 Flow FiO2 Mean Ox Delivery Rate 08/22 1837 129 08/22 1510 110 114/65 08/22 1500 127 142/75 08/22 1449 123 08/22 1436 132 142/75 08/22 1343 139 113/56 08/22 1237 98.1 104 18 137/80 98 Room Air Intake & Output 08/22 1600 08/22 0800 08/22 0000 08/21 1600 08/21 0800 08/21 0000 Intake Total Output Total 250 Balance -250 Output, Urine 250 Patient 140 lb Weight Weight Reported by Patient Measurement Method Physical Exam: General: WD/WN female in NAD; alert and oriented x 3 HEENT: NC/AT, PERRL, EOMI Neck: no JVD, no carotid bruit Heart: irregularly irregular with 2/6 systolic murmur Lungs: clear bilaterally Abdomen: soft, NT, +ve bowel sounds Extremities: 2+ right lower extremity edema Assessment/Plan Assessment/Plan Hypertension. This patient has a normal blood pressure today but she is nonetheless lightheaded. Her history of hypertension does put her at risk of atrial fibrillation. I do suspect that hypertension is a real issue however due to my auscultation of an S4 and based on LVH noted on her ECG both noted on her last visti. I recommended a low sodium diet. At present, her pressure is likely improved due to her tachycardia. Facial pain. This patient has facial pain that is due to trigeminal neuralgia. We will change to Tegretol ER 200mg daily. My intention is to continue this medication for three to six months depending on its response. Right leg swelling. This patient will need to be evaluated for a DVT. Although the patient does not have any shortness of breath at her minimal level of activity, I do have some concern that she may have experienced a pulmonary embolism that put her into atrial fibrillation. We will check a D-dimer and ABG in addition to a lower extremity ultrasound. If any of these are abnormal then we will pursue a CT angiogram to assess for a PE. Atrial Fibrillation. New onset atrial fibrillation with rapid heart rate. Will assess for a PE as a cause of A. Fib. Obtrain a D-dimer, ABG and LE ultrasound. If any of these are abrnormal then obtain a CT angiogram. Begin IV cardizem. Follow cardiac enzymes for three sets or until they peak. Check a TSH and free T4. Begin IV heparin. Obtain an echocardiogram. Consult Acknowledgment - Thank you for your consult request.
[2017-08-22 21:52] LABS: PTT > 120 SEC (25-37)
[2017-08-22 22:12] VITALS: BP 120/90
[2017-08-23 01:08] VITALS: BP 114/70
[2017-08-23 05:56] LABS: PTT 64 SEC (25-37)
[2017-08-23 06:38] VITALS: BP 124/70
--- NOTE | 2017-08-23 07:46 | PN- Housestaff ---
See Addendum Subjective Follow-up For: #RLE DVT #New-onset A. fib #Past medical history Tele-Events Since Last Visit: Mostly A-fib 80-130s reverted to NSR 50-80s aroudn 0722 this AM. Subjective: no overnight event. Patient had no specific complaint. She felt improved on her swelling of right ankle, with less soreness. Review of Systems Constitutional: Reports: see HPI. Objective Last 24 Hrs of Vital Signs/I&O Vital Signs Date Time Temp Pulse Resp B/P B/P Pulse O2 O2 Flow FiO2 Mean Ox Delivery Rate 08/23 0638 98.6 90 20 124/70 91 Room Air 08/23 0108 114/70 08/22 2212 98.6 110 18 120/90 95 Room Air 08/22 2200 Room Air 08/22 2106 98.3 107 15 100/59 94 Room Air 08/22 1930 112 08/22 1837 129 08/22 1700 98 Room Air 08/22 1510 110 114/65 08/22 1500 127 142/75 08/22 1449 123 08/22 1436 132 142/75 08/22 1343 139 113/56 08/22 1237 98.1 104 18 137/80 98 Room Air Intake & Output 08/23 1600 08/23 0800 08/23 0000 Intake Total 234 Output Total 300 150 Balance -66 -150 Intake, IV 184 Intake, Oral 50 Output, Urine 300 150 Patient 62.823 kg Weight Weight Bed scale Measurement Method Physical Exam General Appearance: Alert, Oriented X3, Cooperative, No Acute Distress Cardiovascular: Regular Rate Lungs: Clear to Auscultation, Normal Air Movement Abdomen: Soft, No Tenderness Neurological: Normal Speech, Strength at 5/5 X4 Ext Extremities: No Edema, Normal Pulses, RLE swelling luisa at ankle, however no tenderness on palpation. Current Medications: Current Medications Sig/Barbi Start time Last Medication Dose Route Stop Time Status Admin Acetaminophen 0 .STK-MED ONE 08/22 1608 DC IV Aspirin 81 MG DAILY 08/23 1000 AC PO Carbamazepine 200 MG DAILY 08/22 194 AC 08/22 PO 2034 Diltiazem HCl 0 .STK-MED ONE 08/22 1744 DC .ROUTE Diltiazem HCl 125 MG Q24H 08/22 171 AC 08/22 Sodium Chloride 100 ML IV 1836 Diltiazem HCl 10 MG ONCE ONE 08/22 1445 DC 08/22 IV PUSH 08/22 1446 1500 Diltiazem HCl 0 .STK-MED ONE 08/22 1344 DC .ROUTE Diltiazem HCl 10 MG ONCE ONE 08/22 1330 DC 08/22 IV PUSH 08/22 1331 1343 Heparin Sodium 0 .STK-MED ONE 08/22 1500 DC (Porcine) .ROUTE Heparin Sodium 4,000 UNIT ONCE ONE 08/22 1445 DC 08/22 (Porcine) IV 08/22 1446 1508 Heparin Sodium 25,000 UNIT Q24H 08/22 1445 AC 08/22 (Porcine) IV 1507 Sodium Chloride 500 ML Lorazepam 0 .STK-MED ONE 08/22 1608 DC .ROUTE Last 24 Hrs of Lab/Edwin Results Last 24 Hrs of Labs/Mics: Laboratory Tests 08/23/17 0650: Troponin I 0.18 *H, CBC w Diff Pending, WBC Pending, RBC Pending, Hgb Pending, Hct Pending, MCV Pending, MCH Pending, MCHC Pending, RDW Pending, Plt Count Pending, MPV Pending 08/23/17 0515: Triglycerides 88, Cholesterol 120, LDL Cholesterol, Calc 78, HDL Cholesterol 25 L, Cholesterol/HDL Ratio 4.8 H, APTT 64 H 08/23/17 0100: Troponin I 0.21 *H 08/22/17 2300: Troponin I Cancelled 08/22/17 2100: APTT > 120 *H 08/22/17 1936: Troponin I 0.15 *H 08/22/17 1255: Anion Gap 11, Estimated GFR > 60, BUN/Creatinine Ratio 16.7, Glucose 109 H, Calcium 8.9, Total Bilirubin 0.8, AST 29, ALT 39, Alkaline Phosphatase 75, Troponin I 0.10, Total Protein 6.3, Albumin 3.0 L, Globulin 3.3, Albumin/ Globulin Ratio 0.9 L, TSH 1.590, Thyroxine (T4) 8.4, Free T3 4.4, PT 15.6 H, INR 1.43 H, APTT 33, CBC w Diff NO MAN DIFF REQ, RBC 4.12 L, MCV 98.2, MCH 33.0 H, MCHC 33.6, RDW 14.4, MPV 8.5, Gran % 80.4 H, Lymphocytes % 7.4 L, Monocytes % 9.8 H, Eosinophils % 2.2, Basophils % 0.2, Absolute Granulocytes 8.1 H, Absolute Lymphocytes 0.7 L, Absolute Monocytes 1.0 H, Absolute Eosinophils 0.2, Absolute Basophils 0 Assessment/Plan Assessment: Ms. Alonzo 81-year-old female with PMH of osteoporosis, trigeminal neuralgia currently on carbamazepine, macular degeneration, presented to ER with chief complaint of right leg swelling (noticed by her daughter) starting last Tuesday prior to this admission, and lightheadedness, and chest discomfort, however 89 and shortness of breath. Patient follow-up with Dr. Gamboa, and was found to have irregularly irregular heart rhythm was possibly consistent with new onset atrial fibrillation which is confirmed by EKG in office, and was subsequently sent to the ER for further evaluation. On admission, Vitals: Stable, BP 114/65 -CBC: Unremarkable, PT/INR 15.6/1.43 -BMP: Unremarkable -CXR: Moderately enlarged cardiac silhouette reflecting either cardiomegaly or pericardial effusion. Tortuous uncoiled thoracic aorta with calcification of the aortic knob. Cephalization of the pulmonary vasculature. -RLE Dopper: Acute DVT in the calf veins extending into the popliteal vein and into the femoral vein, residential up the thigh. -CTA: negative for PE -EKG: A-fib tachy w/ LBBB -Interventions in ER: Cardizem 10 mg IV push 2, heparin 4000 units IV 1 Assessment: Ms. Alonzo 81-year-old female with PMH of osteoporosis, trigeminal neuralgia currently on carbamazepine, macular degeneration, presented to ER for further evaluation of new onset A. fib from Dr. Gamboa's office, and was found to have incidental DVT on right lower extremity, recent concerns of possible PE as well given patient's new onset A. fib without any particular triggers. Problem list #RLE DVT #New-onset A. fib #Past medical history Plan - Continue telemetry monitoring, patient is now reverted to NSR. - Trend EKG/Trop x 2 to peak at 0.21 and trended down to 0.18 on latest lab. No EKG findings, likely due to demand ischemia. neuralgia heart rate DVT prophylaxis Heparin drip Heart healthy diet DNR/DNI Problem List: 1. Deep vein thrombosis (DVT) of right lower extremity 2. New onset a-fib 3. Rapid atrial fibrillation Pain Ratin Pain Location: NA Pain Goal: Remain pain free Pain Plan: see AP Tomorrow's Labs & Rationales: NA
[2017-08-23 08:31] LABS: ABSOLUTE BASOPHIL COUNT 0.1 /CUMM (0.0-0.2); ABSOLUTE EOSINOPHIL COUNT 0.5 /CUMM (0.0-0.7); ABSOLUTE GRANULOCYTE CT 5.2 /CUMM (1.4-6.5); ABSOLUTE LYMPH COUNT 1.2 /CUMM (1.2-3.4); BASOPHIL % 0.8 % (0.0-2.0); GRANULOCYTE % 65.6 % (42.2-75.2); MEAN CORPUSCULAR HGB 33.4 PG (27.0-31.0); MEAN CORPUSCULAR HGB CONC 33.8 G/DL (33.0-37.0); PLATELET COUNT 207 /CUMM (130-400); RBC DISTRIBUTION WIDTH 14.4 % (11.5-14.5); RED BLOOD CELL CT 3.57 /CUMM (4.20-5.40)
[2017-08-23 09:13] LABS: HEMATOCRIT 35.3 % (37-47)
[2017-08-23 14:00] VITALS: BP 110/58
--- NOTE | 2017-08-23 18:06 | PN- Cardiology ---
Subjective Subjective: * [place] feels much improved. No leg discomfort, shortness of breath or chest pain. * Patient converted to a sinus rhythm. * Mildly increased troponin. * Extensive DVT noted on ultrasound Objective Vital Signs and I&Os Vital Signs Date Time Temp Pulse Resp B/P B/P Pulse O2 O2 Flow FiO2 Mean Ox Delivery Rate 08/23 1400 98.5 76 18 110/58 92 Room Air 08/23 0638 98.6 90 20 124/70 91 Room Air 08/23 0108 114/70 08/22 2212 98.6 110 18 120/90 95 Room Air 08/22 2200 Room Air 08/22 2106 98.3 107 15 100/59 94 Room Air 08/22 1930 112 08/22 1837 129 Intake & Output 08/23 1600 08/23 0800 08/23 0000 08/22 1600 08/22 0800 08/22 0000 Intake Total 620 234 Output Total 200 300 150 250 Balance 420 -66 -150 -250 Intake, IV 170 184 Intake, Oral 450 50 Output, Urine 200 300 150 250 Patient 139 lb 140 lb Weight Weight Bed scale Reported by Patient Measurement Method Physical Exam: General: WD/WN female in NAD; alert and oriented x 3 Neck: no JVD Heart: RRR with 2/6 systolic murmur Lungs: clear bilaterally Abdomen: soft, NT, +ve bowel sounds Extremities: no edema Assessment/Plan Assessment/Plan * DVT. Change to Eliquis 5mg BID. * Atrial fibrillation. Echo pending. Begin Cardizem 60mg PO TID. Stop IV cardizem after second oral dose. Monitor on telemetry. * Positive troponin. If the patient does have some underlying coronary artery disease then this may be related to myocardial ischemia, i.e. a type 2 IN, from the increase demand of atrial fibrillation with increased heart rate. We will pursue a pharmacologic stress test as an outpatient to assess if there is significant underlying ischemic heart disease. The other possibility is that the patient has peripheral pulmonary emboli that could not be seen on her CT angiogram. We will not pursue a V/Q scan since the patient is already known to need anticoagulation. Continue aspirin 81mg daily. * Trigeminal neuralgia. Continue Tegretol ER 200mg daily. Continue telemetry? Yes
[2017-08-23 18:53] LABS: PTT 38 SEC (25-37)
[2017-08-23 22:08] VITALS: BP 124/76
[2017-08-24 06:46] VITALS: BP 130/80
--- NOTE | 2017-08-24 07:44 | PN- Housestaff ---
See Addendum Subjective Follow-up For: #RLE DVT #New-onset A. fib #HFpEF w/ stage 2 diastolic dysfunction #PMH of osteoporosis, trigeminal neuralgia Tele-Events Since Last Visit: NSR 70-80s Subjective: No overnight event. Patient had no specific complaint and resting on bed this morning. Review of Systems Constitutional: Reports: see HPI. Objective Last 24 Hrs of Vital Signs/I&O Vital Signs Date Time Temp Pulse Resp B/P B/P Pulse O2 O2 Flow FiO2 Mean Ox Delivery Rate 08/24 0646 97.4 79 20 130/80 93 Room Air 08/24 0606 68 130/76 08/23 2208 98.8 80 18 124/76 92 08/23 2051 82 114/62 08/23 1400 98.5 76 18 110/58 92 Room Air Intake & Output 08/24 0800 08/24 0000 08/23 1600 Intake Total 310 620 Output Total 200 Balance 310 420 Intake, IV 30 170 Intake, Oral 280 450 Output, Urine 200 Patient 66.27 kg Weight Physical Exam General Appearance: Cooperative, No Acute Distress, Sleeping Cardiovascular: Regular Rate Lungs: Clear to Auscultation, Normal Air Movement Abdomen: Soft, No Tenderness Extremities: No Edema, RLE swelling from DVT, improved from last day. Current Medications: Current Medications Sig/Barbi Start time Last Medication Dose Route Stop Time Status Admin Apixaban 5 MG BID 08/23 2199 AC 08/23 PO 2050 Aspirin 81 MG DAILY 08/23 1000 AC 08/23 PO 1119 Carbamazepine 200 MG DAILY 08/22 1945 AC 08/23 PO 1119 Diltiazem HCl 60 MG Q8 08/23 2200 AC 08/24 PO 0606 Diltiazem HCl 125 MG Q24H 08/22 1715 DC 08/23 Sodium Chloride 100 ML IV 08/24 0630 1553 Guaifenesin/ 10 ML Q6P PRN 08/23 1045 AC 08/23 Dextromethorphan PO 1724 Heparin Sodium 25,000 UNIT Q24H 08/22 1445 DC 08/23 (Porcine) IV 08/23 2300 1554 Sodium Chloride 500 ML Multivitamins 1 TAB DAILY 08/23 1034 AC 08/23 PO 1119 Patient Medication 1 ED ONE ONE 08/23 1630 DC 08/23 Teaching ED 08/23 1631 1724 Last 24 Hrs of Lab/Edwin Results Last 24 Hrs of Labs/Mics: Laboratory Tests 08/24/17 0625: CBC w Diff Pending, WBC Pending, RBC Pending, Hgb Pending, Hct Pending, MCV Pending, MCH Pending, MCHC Pending, RDW Pending, Plt Count Pending, MPV Pending 08/23/17 1805: APTT 38 H Assessment/Plan Assessment: Ms. Alonzo 81-year-old female with PMH of osteoporosis, trigeminal neuralgia currently on carbamazepine, macular degeneration, presented to ER for further evaluation of new onset A. fib from Dr. Gamboa's office, and was found to have incidental DVT on right lower extremity, recent concerns of possible PE as well given patient's new onset A. fib without any particular triggers. Problem list #RLE DVT #New-onset A. fib #HFpEF w/ stage 2 diastolic dysfunction #PMH of osteoporosis, trigeminal neuralgia Plan - Continue telemetry monitoring, patient was NSR overnight. - Trend EKG/Trop x 2 to peak at 0.21 and trended down to 0.18 on latest lab. No EKG findings, likely due to demand ischemia. neuralgia cardio recommendation. - May pursue outpatient pharmacological stress test in outpatient setting. DVT prophylaxis Eliquis Heart healthy diet Full Code Problem List: 1. Deep vein thrombosis (DVT) of right lower extremity Pain Ratin Pain Location: NA Pain Goal: Remain pain free Pain Plan: see AP Tomorrow's Labs & Rationales: CBC/BEP
[2017-08-24 08:19] LABS: ABSOLUTE BASOPHIL COUNT 0.1 /CUMM (0.0-0.2); ABSOLUTE EOSINOPHIL COUNT 0.4 /CUMM (0.0-0.7); ABSOLUTE GRANULOCYTE CT 6.2 /CUMM (1.4-6.5); ABSOLUTE LYMPH COUNT 1.1 /CUMM (1.2-3.4); ABSOLUTE MONOCYTE COUNT 0.9 /CUMM (0.10-0.60); BASOPHIL % 1.4 % (0.0-2.0); GRANULOCYTE % 70.5 % (42.2-75.2); HEMATOCRIT 34.2 % (37-47); MEAN CORPUSCULAR HGB 33.1 PG (27.0-31.0); MEAN CORPUSCULAR HGB CONC 33.5 G/DL (33.0-37.0); MEAN CORPUSCULAR VOLUME 98.8 FL (81.0-99.0); MEAN PLATELET VOLUME 8.4 FL (7.4-10.4); PLATELET COUNT 250 /CUMM (130-400); RBC DISTRIBUTION WIDTH 14.8 % (11.5-14.5); RED BLOOD CELL CT 3.46 /CUMM (4.20-5.40); WHITE BLOOD CELL COUNT 8.7 /CUMM (4.8-10.8)
--- NOTE | 2017-08-24 10:32 | ECHOCARDIOGRAM REPORT ---
LASHAE CROWE Age: 81 : 1935 Gender: F Exam Date: 08/23/2017 17:19 Exam Location: [place] Ht (in): 59 Wt (lb): 138 BSA: 1.64 BP: 124 / 70 Ordering Physician: Ivania White MD Referring Physician: Francisco Gamboa MD, PhD Technologist: Swetha Quinn [facility] Room Number: 173 Indications: ARRHYTHMIAS Rhythm: Sinus Technical Quality: Fair FINDINGS Left Ventricle Normal size left ventricle. Mild concentric left ventricular hypertrophy. No obvious regional wall motion abnormalities. Normal left ventricular ejection fraction visually estimated at >60%. "pseudonormal" filling pattern of the left ventricle for age (stage 2 diastolic dysfunction). Right Ventricle Normal right ventricular size and function. Right Atrium Moderate right atrial dilatation. Left Atrium Moderate left atrial dilatation. Mitral Valve Mild mitral annular calcification. Mitral valve mildly thickened. Mild mitral regurgitation. Aortic Valve Trileaflet aortic valve. Minimal aortic sclerosis. No aortic valve stenosis or regurgitation. Tricuspid Valve Structurally normal tricuspid valve. Moderate tricuspid regurgitation. Mild pulmonary hypertension. Right ventricular systolic pressure estimated to be elevated at 42 mmHg. Pulmonic Valve Pulmonic valve not well visualized, grossly normal. Trace pulmonic regurgitation. Pericardium No pericardial effusion. Great Vessels Normal size aortic root. Dilated inferior vena cava. CONCLUSIONS Normal size left ventricle. Mild concentric left ventricular hypertrophy. Normal left ventricular ejection fraction visually estimated at > 60%. "pseudonormal" filling pattern of the left ventricle for age (stage 2 diastolic dysfunction). Normal right ventricular size and function. Moderate atrial dilatation. Mild mitral regurgitation. Moderate tricuspid regurgitation. Mild pulmonary hypertension. Trace pulmonic regurgitation. Dilated inferior vena cava. Shailesh Jarrell M.D. (Electronically Signed) Final Date: 24 August 2017 10:31 MEASUREMENTS (Male / Female) Normal Values 2D ECHO LV Diastolic Diameter PLAX 4.0 cm 4.2 - 5.9 / 3.9 - 5.3 cm LV Systolic Diameter PLAX 2.7 cm 2.1 - 4.0 cm LV Fractional Shortening PLAX 32.5 % 25 - 46 % LV Ejection Fraction 2D Teich 61.4 % IVS Diastolic Thickness 1.1 cm LVPW Diastolic Thickness 1.1 cm LV Relative Wall Thickness 0.6 RV Internal Dim ED PLAX 2.9 cm 1.9 - 3.8 cm LVOT Diameter 2.0 cm Aortic Root Diameter 2.9 cm LA Systolic Diameter LX 3.8 cm 3.0 - 4.0 / 2.7 - 3.8 cm LA Volume 59.0 cm 18 - 58 / 22 - 52 cm Ascending Aorta Diameter 3.1 cm DOPPLER AV Peak Velocity 156.0 cm/s AV Peak Gradient 9.7 mmHg AV Mean Velocity 112.0 cm/s AV Mean Gradient 6.0 mmHg AV Velocity Time Integral 29.3 cm LVOT Peak Velocity 111.0 cm/s LVOT Peak Gradient 4.9 mmHg LVOT Mean Velocity 71.5 cm/s LVOT Mean Gradient 2.0 mmHg LVOT Velocity Time Integral 20.6 cm LVOT Stroke Volume 64.7 cm AV Area Cont Eq vti 2.2 cm AV Area Cont Eq pk 2.2 cm MV Peak Velocity 109.0 cm/s MV Peak Gradient 4.8 mmHg MV Mean Velocity 69.2 cm/s MV Mean Gradient 2.0 mmHg Mitral E Point Velocity 94.3 cm/s Mitral A Point Velocity 81.9 cm/s Mitral E to A Ratio 1.2 MV PHT Velocity 116.0 cm/s MV Deceleration [place] 443.0 cm/s MV Pressure Half Time 78.6 ms MV Area PHT 2.8 cm MV Deceleration Time 153.0 ms TR Peak Velocity 304.0 cm/s TR Peak Gradient 37.0 mmHg Right Atrial Pressure 5.0 mmHg Pulmonary Artery Systolic Pressu 42.0 mmHg Right Ventricular Systolic Press 42.0 mmHg PV Peak Velocity 105.0 cm/s PV Peak Gradient 4.4 mmHg PV Mean Velocity 64.4 cm/s PV Mean Gradient 2.0 mmHg PV Velocity Time Integral 17.3 cm LV E' Lateral Velocity 9.4 cm/s Mitral E to LV E' Lateral Ratio 10.1 LV E' Septal Velocity 6.1 cm/s Mitral E to LV E' Septal Ratio 15.4
[2017-08-24] MEDS ORDERED: TEGRETOL XR200 M1 PO (11:03)
[2017-08-24] MEDS ORDERED: ELIQUIS5 M1 PO ×2 (11:03→11:47)
--- NOTE | 2017-08-24 11:07 | Patient Discharge Instructions ---
Discharge Instructions General Discharge Information Special Instructions: - Please continue taking Eliquis at prescribed regimen and follow up with your hub bander for refill/dose adjustment. Please visit ER for any active bleeding from mouth/nose/rectum, and only stop Eliquis under physician's guidance. - Please follow up with your hub bander Dr. Gamboa on 08/30/2017 for your A-fib and outpatient stress test. - Please follow up with your primary care physician within 1-2 weeks of discharge. Inform your primary care physician of this admission to [facility]. - Continue your current medications per discharge instructions. - Please watch for these problems: Fever, Chills, Nausea, Vomiting, Shortness of Breath, Productive Cough, Chest Pain/Discomfort, Abdominal Pain, Active Bleeding or Bloody urine/stool. Diet Continue normal diet: Yes Recommended Diet: Heart Healthy Activity Full Activity/No Limits: Yes Acute Coronary Syndrome Inclusion Criteria At DC or during hospital stay patient has or had the following: ACS DIAGNOSIS No Discharge Core Measures Meds if any: Prescribed or Continued at Discharge Meds if any: NOT Prescribed or Continued at Discharge Congestive Heart Failure Inclusion Criteria At DC or during hospital stay patient has or had the following: CHF DIAGNOSIS Yes Discharge Core Measures Meds if any: Prescribed or Continued at Discharge Meds if any: NOT Prescribed or Continued at Discharge Cerebrovascular accident Inclusion Criteria At DC or during hospital stay patient has or had the following: CVA/TIA Diagnosis No Discharge Core Measures Meds if any: Prescribed or Continued at Discharge Meds if any: NOT Prescribed or Continued at Discharge Venous thromboembolism Inclusion Criteria VTE Diagnosis Yes VTE Type Deep Venous Thrombosis VTE Confirmed by (Test) UNILATERAL VENOUS DOPPLER Discharge Core Measures - Per Current guidelines, there needs to be overlap - treatment for the first 5 days of Warfarin therapy. - If discharged on Warfarin prior to 5 days of - overlap therapy, the patient will need to be - assessed for post discharge needs including - *Post discharge parental anticoagulation - *Warfarin and/or parental anticoagulation education - *Follow up date to check INR post discharge At least 5 days overlap therapy as Inpatient No Why was Parental Med stopped Other Anticoagulant given Meds if any: Prescribed or Continued at Discharge Warfarin No Overlap Therapy No Note: Overlap Therapy is Warfarin and Anticoagulant Meds if any: NOT Prescribed or Continued at Discharge
--- NOTE | 2017-08-24 12:19 | PN- Cardiology ---
Subjective Subjective: * Noemy feels a bit lightheaded today. * sinus rhythm Objective Vital Signs and I&Os Vital Signs Date Time Temp Pulse Resp B/P B/P Pulse O2 O2 Flow FiO2 Mean Ox Delivery Rate 08/24 08 93 Room Air 08/24 0646 97.4 79 20 130/80 93 Room Air 08/24 0606 68 130/76 08/23 2208 98.8 80 18 124/76 92 08/23 2051 82 114/62 08/23 1400 98.5 76 18 110/58 92 Room Air Intake & Output 08/24 1600 08/24 0800 08/24 0000 08/23 1600 08/23 0800 08/23 0000 Intake Total 310 620 234 Output Total 200 300 150 Balance 310 420 -66 -150 Intake, IV 30 170 184 Intake, Oral 280 450 50 Output, Urine 200 300 150 Patient 146 lb 139 lb Weight Weight Bed scale Measurement Method Physical Exam: General: WD/WN female in NAD; alert and oriented x 3 Neck: no JVD Heart: RRR with 2/6 systolic murmur Lungs: clear bilaterally Abdomen: soft, NT, +ve bowel sounds Extremities: no edema Assessment/Plan Assessment/Plan * DVT. Change to Eliquis 10mg BID for 7 days then decrease to 5mg BID. * Atrial fibrillation. Continue Cardizem 60mg PO TID. Monitor on telemetry for another day since patient is lightheaded and the oral Cardizem dose is being adjusted. * Positive troponin. If the patient does have some underlying coronary artery disease then this may be related to myocardial ischemia, i.e. a type 2 DE, from the increase demand of atrial fibrillation with increased heart rate. We will pursue a pharmacologic stress test as an outpatient to assess if there is significant underlying ischemic heart disease. The other possibility is that the patient has peripheral pulmonary emboli that could not be seen on her CT angiogram. We will not pursue a V/Q scan since the patient is already known to need anticoagulation. Continue aspirin 81mg daily. * Trigeminal neuralgia. Continue Tegretol ER 200mg daily. Continue telemetry? Yes
[2017-08-24 13:14] VITALS: BP 110/60
[2017-08-24 14:27] VITALS: BP 126/68
--- NOTE | 2017-08-24 14:29 | Discharge Summary ---
Visit Information Visit Dates Admission Date: 08/22/17 Discharge Date: 08/26/2017 Hospital Course Course Attending Physician: Bee ZAYAS PHD,Francisco Hendricks Primary Care Physician: Carrie ZAYAS,Fatuma Huynh Hospital Course: Ms. Alonzo 81-year-old female with PMH of osteoporosis, trigeminal neuralgia currently on carbamazepine, macular degeneration, presented to ER with chief complaint of right leg swelling (noticed by her daughter) starting last [place] prior to this admission, and lightheadedness, and chest discomfort, however 89 and shortness of breath. Patient follow-up with Dr. Gamboa, and was found to have irregularly irregular heart rhythm was possibly consistent with new onset atrial fibrillation which is confirmed by EKG in office, and was subsequently sent to the ER for further evaluation. On admission, Vitals: Stable, BP 114/65 -CBC: Unremarkable, PT/INR 15.6/1.43 -BMP: Unremarkable -CXR: Moderately enlarged cardiac silhouette reflecting either cardiomegaly or pericardial effusion. Tortuous uncoiled thoracic aorta with calcification of the aortic knob. Cephalization of the pulmonary vasculature. -RLE Dopper: Acute DVT in the calf veins extending into the popliteal vein and into the femoral vein, custodial up the thigh. -CTA: negative for PE -EKG: A-fib tachy w/ LBBB -Interventions in ER: Cardizem 10 mg IV push 2, heparin 4000 units IV 1 Assessment: Ms. Alonzo 81-year-old female with PMH of osteoporosis, trigeminal neuralgia currently on carbamazepine, macular degeneration, presented to ER for further evaluation of new onset A. fib from Dr. Gamboa's office, and was found to have incidental DVT on right lower extremity, recent concerns of possible PE as well given patient's new onset A. fib without any particular triggers. Problem list roblem list #RLE DVT #New-onset A. fib #HFpEF w/ stage 2 diastolic dysfunction #PMH of osteoporosis, trigeminal neuralgia Hospital course On admission, patient was started on continuous telemetry monitoring, trend his troponin/EKG 3 peaked at 0.21 and then trended down to 0.18. No significant EKG findings, and patient's elevated troponin was likely due to demand ischemia. Patient's atrial fibrillation was treated with Cardizem drip 125 mg every 24 hours, and later switched to Cardizem 60 mg p.o. 3 times daily per cardiology recommendation after patient converted back to normal sinus rhythm on 08/23/2017 morning. Patient again had atrial fibrillation for the following 08/24-, however reverted back to normal sinus rhythm on 08/25 afternoon. Patient was again in a-fib with rated controlled <100 on 08/26 morning, however without any symptoms. Patient was discharged home with Cardizem 90mg PO twice daily and Metoprolo 37.5mg twice daily and follow up with Dr. Gamboa in outpatient. Patient's right lower extremity DVT was treated with heparin drip 25,000 units later bridged to Eliquis 10 mg twice daily for 7 days, and was switched to Eliquis 5 mg twice daily for long-term anticoagulation/DVT prophylaxis. Patient 's TSH profiles remain within normal range. Patient was started on Tegretol ER [address] Gamboa's recommendation for her trigeminal neuralgia. Prior to discharge, patient's echocardiogram reported: Normal size left ventricle. Mild concentric left ventricular hypertrophy. Normal left ventricular ejection fraction visually estimated at > 60%. "pseudonormal" filling pattern of the left ventricle for age (stage 2 diastolic dysfunction). Normal right ventricular size and function. Moderate atrial dilatation. Mild mitral regurgitation. Moderate tricuspid regurgitation. Mild pulmonary hypertension. Trace pulmonic regurgitation. Dilated inferior vena cava. Patient may need to be pursued on outpatient pharmacological stress test after discharge. Over the hospital stay, patient was continue home medication for aspirin 81 mg daily. DVT prophylaxis Eliquis Heart healthy diet Full Code Allergies: Coded Allergies: No Known Allergies (10/16/16) Pertinent Lab Results: SERVICE DATE: 08/22/17-1249 EXAM TYPE: RAD - XRY-PORTABLE CHEST XRAY IMPRESSION: Moderately enlarged cardiac silhouette reflecting either cardiomegaly or pericardial effusion. Tortuous uncoiled thoracic aorta with calcification of the aortic knob. Cephalization of the pulmonary vasculature. SERVICE DATE: 08/22/17-1314 EXAM TYPE: US - US-UNILATERAL VENOUS DOPPLER IMPRESSION: Acute DVT in the calf veins extending into the popliteal vein and into the femoral vein, custodial up the thigh. SERVICE DATE: 08/22/17-152 EXAM TYPE: CAT - CTA CHEST-PULMONARY EMBOLISM IMPRESSION: Suboptimal exam. Negative for PE. No evidence of aortic dissection or aneurysm. Mildly enlarged right hilar lymph node. Trace right-sided pleural effusion. Cardiomegaly. Moderate to large-sized hiatal hernia. Gallstones. Partial visualization of dilatation of CBD and main pancreatic duct. The region of the ampulla is not imaged in this exam. VTE: negative SERVICE DATE: 08/23/17 EXAM TYPE: CARD - ECHOCARDIOGRAM CONCLUSIONS Normal size left ventricle. Mild concentric left ventricular hypertrophy. Normal left ventricular ejection fraction visually estimated at > 60%. "pseudonormal" filling pattern of the left ventricle for age (stage 2 diastolic dysfunction). Normal right ventricular size and function. Moderate atrial dilatation. Mild mitral regurgitation. Moderate tricuspid regurgitation. Mild pulmonary hypertension. Trace pulmonic regurgitation. Dilated inferior vena cava. Shailesh Jarrell M.D. (Electronically Signed) Disposition Summary Disposition Principal Diagnosis: #RLE DVT #New-onset A. fib #HFpEF w/ stage 2 diastolic dysfunction #PMH of osteoporosis, trigeminal neuralgia Additional Diagnosis: As above Discharge Disposition: home or self care Discharge Instructions General Discharge Information Code Status: Full Code Patient's Diet: Heart Healthy Patient's Activity: As tolerated Follow-Up Instructions/Appts: - Please continue taking Eliquis at prescribed regimen and follow up with your hole digger truck driver for refill/dose adjustment. Please visit ER for any active bleeding from mouth/nose/rectum, and only stop Eliquis under physician's guidance. - Please follow up with your hole digger truck driver Dr. Gamboa on 08/30/2017 for your A-fib and outpatient stress test. - Please follow up with your primary care physician within 1-2 weeks of discharge. Inform your primary care physician of this admission to [facility]. - Continue your current medications per discharge instructions. - Please watch for these problems: Fever, Chills, Nausea, Vomiting, Shortness of Breath, Productive Cough, Chest Pain/Discomfort, Abdominal Pain, Active Bleeding or Bloody urine/stool. Medications at Discharge Discharge Medications: Stop taking the following medications: Carbamazepine (Tegretol) 200 MG TABLET ORAL DAILY Carbamazepine (Tegretol) 200 MG TABLET ORAL Every night Continue taking these medications: Calcium Carbonate/Vitamin D3 (Caltrate 600 + D Tablet) 600 MG-800 TABLET 1 Tablet ORAL DAILY Comments: not given Cholecalciferol (Vitamin D3) (Vitamin D) 1,000 UNIT TABLET 1 Tablet ORAL DAILY Comments: not given Aspirin (Aspirin*) 81 MG TAB.CHEW 1 Tablet ORAL DAILY Comments: given 08/26/17 @ 1041 [place]-3 Fatty Acids/Fish Oil (Fish Oil 1,000 MG Capsule) 340 MG-1,000 MG CAPSULE 1 Capsule ORAL DAILY Comments: not given Vit A/Vit C/Vit E/Zinc/Copper (Preservision Areds Tablet) 7,160-113 TABLET 1 Tablet ORAL TWICE DAILY Comments: not given Cyanocobalamin (Vitamin B-12) 1,000 MCG TABLET 1 Tablet ORAL DAILY Comments: not given Denosumab (Prolia) 60 MG/ML SYRINGE 1 Inj INTRAMUSC Comments: not given Start taking the following new medications: Carbamazepine (Tegretol XR) 200 MG TAB.ER.12H 1 Tablet ORAL DAILY Qty = 60 No Refills Instructions: . Comments: given 08/26/17 @ 1041 Metoprolol Tartrate (Metoprolol Tartrate) 25 MG TABLET 37.5 Milligram ORAL TWICE DAILY Qty = 60 No Refills Instructions: . Comments: given 08/26/17 @ 1041 Apixaban (Eliquis) 5 MG TABLET 10 Milligram ORAL TWICE DAILY Qty = 18 No Refills Instructions: . Comments: given 10 mg 08/26/17 @ 1041 Today 08/26: Please take 2 tablets tonight From 08/27 to 08/30: Please take 2 tablets every morning and 2 tablets every night Apixaban (Eliquis) 5 MG TABLET 1 Tablet ORAL TWICE DAILY Qty = 60 No Refills Instructions: . Comments: 08/31: Please take 1 tablet every morning and 1 tablet every night Diltiazem HCl (Diltiazem HCl) 90 MG TABLET 90 Milligram ORAL TWICE DAILY Qty = 60 No Refills Comments: given 08/26/17 @ 1041 Copies To: Fatuma Butler MD
[2017-08-24 23:39] VITALS: BP 98/58
[2017-08-25 06:49] VITALS: BP 100/60
--- NOTE | 2017-08-25 07:27 | PN- Housestaff ---
Subjective Follow-up For: #RLE DVT on Eliquis now #A. fib #HFpEF w/ stage 2 diastolic dysfunction #PMH of osteoporosis, trigeminal neuralgia Tele-Events Since Last Visit: A-fib 80-110s Subjective: no overnight event. Patient denied any specific complaint and resting well on bed. Review of Systems Constitutional: Reports: see HPI. Objective Last 24 Hrs of Vital Signs/I&O Vital Signs Date Time Temp Pulse Resp B/P B/P Pulse O2 O2 Flow FiO2 Mean Ox Delivery Rate 08/25 0800 93 Room Air 08/25 0649 98.4 111 20 100/60 93 Room Air 08/25 0645 104 108/62 08/24 2339 98.1 109 16 98/58 91 Room Air 08/24 2028 130 126/68 08/24 1600 92 Room Air 08/24 1427 97.7 110 20 126/68 92 Room Air 08/24 1314 120 110/60 08/24 1313 120 110/60 Intake & Output 08/25 1600 08/25 0800 08/25 0000 Intake Total 360 520 Output Total Balance 360 520 Intake, Oral 360 520 Patient 65.969 kg Weight Physical Exam General Appearance: Alert, Oriented X3, Cooperative, No Acute Distress Cardiovascular: Irregularly tachy Lungs: Clear to Auscultation, Normal Air Movement Abdomen: Soft, No Tenderness Neurological: Normal Speech Extremities: No Edema, Normal Pulses, RLE swelling without tenderness or restricted ROM Current Medications: Current Medications Sig/Barbi Start time Last Medication Dose Route Stop Time Status Admin Apixaban 10 MG BID 08/24 2199 AC 08/24 PO 08/30 Apixaban 5 MG ONCE ONE 08/24 1200 DC 08/24 PO 08/24 1201 1234 Apixaban 5 MG BID 08/23 2200 DC 08/24 PO 0839 Aspirin 81 MG DAILY 08/23 1000 AC 08/24 PO 0839 Carbamazepine 200 MG DAILY 08/22 1945 AC 08/24 PO 0839 Diltiazem HCl 60 MG Q8 08/23 2199 AC 08/25 PO 0645 Guaifenesin/ 10 ML Q6P PRN 08/23 1045 AC 08/24 Dextromethorphan PO 1448 Multivitamins 1 TAB DAILY 08/23 1034 AC 08/24 PO 0839 Last 24 Hrs of Lab/Edwin Results Last 24 Hrs of Labs/Mics: Laboratory Tests 08/25/17 0741: CBC w Diff Pending, WBC Pending, RBC Pending, Hgb Pending, Hct Pending, MCV Pending, MCH Pending, MCHC Pending, RDW Pending, Plt Count Pending, MPV Pending Assessment/Plan Assessment: Ms. Alonzo 81-year-old female with PMH of osteoporosis, trigeminal neuralgia currently on carbamazepine, macular degeneration, presented to ER for further evaluation of new onset A. fib from Dr. Gamboa's office, and was found to have incidental DVT on right lower extremity, recent concerns of possible PE as well given patient's new onset A. fib without any particular triggers. Problem list #RLE DVT #New-onset A. fib #HFpEF w/ stage 2 diastolic dysfunction #PMH of osteoporosis, trigeminal neuralgia Plan - Continue telemetry monitoring. - Trend EKG/Trop x 2 to peak at 0.21 and trended down to 0.18 on latest lab. No EKG findings, likely due to demand ischemia. term anticoagulation. neuralgia cardio recommendation. Patient is still in a-fib, however no signs of RVR on monitor, will continue monitor. Normal size left ventricle. Mild concentric left ventricular hypertrophy. Normal left ventricular ejection fraction visually estimated at > 60%. "pseudonormal" filling pattern of the left ventricle for age (stage 2 diastolic dysfunction). Normal right ventricular size and function. Moderate atrial dilatation. Mild mitral regurgitation. Moderate tricuspid regurgitation. Mild pulmonary hypertension. Trace pulmonic regurgitation. Dilated inferior vena cava. - May pursue outpatient pharmacological stress test in outpatient setting, once rate controlled. DVT prophylaxis Eliquis Heart healthy diet Full Code Problem List: 1. Deep vein thrombosis (DVT) of right lower extremity 2. New onset a-fib Pain Ratin Pain Location: NA Pain Goal: Remain pain free Pain Plan: see AP Tomorrow's Labs & Rationales: CBC
[2017-08-25 08:30] LABS: ABSOLUTE BASOPHIL COUNT 0.1 /CUMM (0.0-0.2); ABSOLUTE EOSINOPHIL COUNT 0.5 /CUMM (0.0-0.7); ABSOLUTE GRANULOCYTE CT 5.3 /CUMM (1.4-6.5); ABSOLUTE LYMPH COUNT 1.1 /CUMM (1.2-3.4); ABSOLUTE MONOCYTE COUNT 0.8 /CUMM (0.10-0.60); BASOPHIL % 0.7 % (0.0-2.0); EOSINOPHIL % 6.5 % (0-5); GRANULOCYTE % 68.1 % (42.2-75.2); HEMATOCRIT 34.2 % (37-47); MEAN CORPUSCULAR HGB 33.3 PG (27.0-31.0); MEAN CORPUSCULAR HGB CONC 33.7 G/DL (33.0-37.0); MEAN CORPUSCULAR VOLUME 98.8 FL (81.0-99.0); MEAN PLATELET VOLUME 8.4 FL (7.4-10.4); PLATELET COUNT 271 /CUMM (130-400); RBC DISTRIBUTION WIDTH 14.8 % (11.5-14.5); RED BLOOD CELL CT 3.47 /CUMM (4.20-5.40); WHITE BLOOD CELL COUNT 7.8 /CUMM (4.8-10.8)
[2017-08-25 14:51] VITALS: BP 118/66
[2017-08-25] MEDS ORDERED: ELIQUIS5 M1 PO (16:04)
--- NOTE | 2017-08-25 18:54 | PN- Cardiology ---
Subjective Subjective: * Patient is back in atrial fibrillation with increased heart rate. No chest pain or shortness of breath. Objective Vital Signs and I&Os Vital Signs Date Time Temp Pulse Resp B/P B/P Pulse O2 O2 Flow FiO2 Mean Ox Delivery Rate 08/25 1600 95 Room Air 08/25 1451 97.8 83 20 118/66 95 Room Air 08/25 1439 88 128/60 08/25 0800 93 Room Air 08/25 0649 98.4 111 20 100/60 93 Room Air 08/25 0645 104 108/62 08/24 2339 98.1 109 16 98/58 91 Room Air 08/24 2028 130 126/68 Intake & Output 08/25 1600 08/25 0800 08/25 0000 08/24 1600 08/24 0800 08/24 0000 Intake Total 680 360 520 620 310 Output Total Balance 680 360 520 620 310 Intake, IV 30 Intake, Oral 680 360 520 620 280 Patient 145 lb 146 lb Weight Physical Exam: General: WD/WN female in NAD; alert and oriented x 3 Neck: no JVD Heart: irregularly irregular with 2/6 systolic murmur Lungs: clear bilaterally Abdomen: soft, NT, +ve bowel sounds Extremities: no edema Assessment/Plan Assessment/Plan * Begin Lopressor 25mg BID and continue cardizem at 90mg BID. Continue Eliquis. * Continue Eliquis at 10mg BID for DVT. * Continue Tegretol for trigeminal neuralgia. Continue telemetry? Yes
[2017-08-25 22:32] VITALS: BP 120/80
[2017-08-26 06:00] VITALS: BP 130/80
--- NOTE | 2017-08-26 07:54 | PN- Housestaff ---
Subjective Follow-up For: #RLE DVT on Eliquis now #A. fib #HFpEF w/ stage 2 diastolic dysfunction #PMH of osteoporosis, trigeminal neuralgia Tele-Events Since Last Visit: NSR overnight however reverted to A-fib around 8AM 135 Subjective: No overnight event. Patient was ambulating without assistance to restroom. Denied any spcific complaint and had slept well. Review of Systems Constitutional: Reports: see HPI. Objective Last 24 Hrs of Vital Signs/I&O Vital Signs Date Time Temp Pulse Resp B/P B/P Pulse O2 O2 Flow FiO2 Mean Ox Delivery Rate 08/26 1041 124/76 08/26 0600 98.7 79 18 130/80 92 08/25 2232 99.4 86 16 120/80 93 Room Air 08/25 2112 88 120/80 08/25 1600 95 Room Air 08/25 1451 97.8 83 20 118/66 95 Room Air 08/25 1439 88 128/60 Intake & Output 08/26 1600 08/26 0800 08/26 0000 Intake Total 120 500 Output Total Balance 120 500 Intake, Oral 120 500 Patient 65.119 kg Weight Physical Exam General Appearance: Alert, Oriented X3, Cooperative, No Acute Distress Cardiovascular: Regular Rate Lungs: Clear to Auscultation, Normal Air Movement Abdomen: Normal Bowel Sounds, Soft, No Tenderness Neurological: Normal Speech, Strength at 5/5 X4 Ext Extremities: No Edema, Normal Pulses, RLE swelling without tenderness from DVT Current Medications: Current Medications Sig/Barbi Start time Last Medication Dose Route Stop Time Status Admin Apixaban 10 MG BID 08/24 2199 AC 08/26 PO 08/30 220 1041 Aspirin 81 MG DAILY 08/23 1000 AC 08/26 PO 1041 Carbamazepine 200 MG DAILY 08/22 1945 AC 08/26 PO 1041 Diltiazem HCl 90 MG BID 08/26 1000 AC 08/26 PO 1041 Diltiazem HCl 60 MG Q8 08/23 2200 DC 08/25 PO 2112 Guaifenesin/ 10 ML Q6P PRN 08/23 1045 AC 08/24 Dextromethorphan PO 1448 Metoprolol Tartrate 25 MG BID 08/26 1000 AC 08/26 PO 1041 Multivitamins 1 TAB DAILY 08/23 1034 AC 08/26 PO 1041 Patient Medication 1 ED ONE ONE 08/25 1530 DC Teaching ED 08/25 1531 Assessment/Plan Assessment: Ms. Alonzo is an 81-year-old female with PMH of osteoporosis, trigeminal neuralgia currently on carbamazepine, macular degeneration, presented to ER for further evaluation of new onset A. fib from Dr. Gamboa's office, and was found to have incidental DVT on right lower extremity, recent concerns of possible PE as well given patient's new onset A. fib without any particular triggers. Problem list #RLE DVT #New-onset A. fib #HFpEF w/ stage 2 diastolic dysfunction #PMH of osteoporosis, trigeminal neuralgia Plan - Continue telemetry monitoring. - Trend EKG/Trop x 2 to peak at 0.21 and trended down to 0.18 on latest lab. No EKG findings, likely due to demand ischemia. term anticoagulation. neuralgia 90mg Po BID per cardio recommendation. Patient reverted to A-fib again thsi morning, however no signs of RVR on monitor, will continue monitor. - Added lopressor 25mg BID on 08/25 for additional rate control Normal size left ventricle. Mild concentric left ventricular hypertrophy. Normal left ventricular ejection fraction visually estimated at > 60%. "pseudonormal" filling pattern of the left ventricle for age (stage 2 diastolic dysfunction). Normal right ventricular size and function. Moderate atrial dilatation. Mild mitral regurgitation. Moderate tricuspid regurgitation. Mild pulmonary hypertension. Trace pulmonic regurgitation. Dilated inferior vena cava. - May pursue outpatient pharmacological stress test in outpatient setting, once rate controlled. DVT prophylaxis Eliquis Heart healthy diet Full Code Problem List: 1. Deep vein thrombosis (DVT) of right lower extremity 2. New onset a-fib Pain Ratin Pain Location: NA Pain Goal: Remain pain free Pain Plan: see AP Tomorrow's Labs & Rationales: NA
--- NOTE | 2017-08-26 13:46 | PN- Cardiology ---
Subjective Subjective: * No complaints * atrial fibrillation with controlled heart rate Objective Vital Signs and I&Os Vital Signs Date Time Temp Pulse Resp B/P B/P Pulse O2 O2 Flow FiO2 Mean Ox Delivery Rate 08/26 1041 124/76 08/26 06 98.7 79 18 130/80 92 08/25 2232 99.4 86 16 120/80 93 Room Air 08/25 2112 88 120/80 08/25 1600 95 Room Air 08/25 1451 97.8 83 20 118/66 95 Room Air 08/25 1439 88 128/60 Intake & Output 08/26 1600 08/26 0800 08/26 0000 08/25 1600 08/25 0800 08/25 0000 Intake Total 120 500 680 360 520 Output Total Balance 120 500 680 360 520 Intake, Oral 120 500 680 360 520 Patient 144 lb 145 lb Weight Physical Exam: General: WD/WN female in NAD; alert and oriented x 3 Neck: no JVD Heart: irregularly irregular with 2/6 systolic murmur Lungs: clear bilaterally Abdomen: soft, NT, +ve bowel sounds Extremities: no edema Assessment/Plan Assessment/Plan * DVT. Continue Eliquis 10mg BID to complete 7 days then decrease to 5mg BID. * Atrial fibrillation. Continue Cardizem 90mg PO BID. Increase Metoprolol to 37.5mg BID. * Trigeminal neuralgia. Continue Tegretol ER 200mg daily. * Positive troponin in the setting of atrial fibrillation with increased heart rate consistent with a type 2 HI. Will pursue a pharmacologic stress test as an outpatient. Continue aspirin 81mg daily. * Discharge patient to home on the above medications with follow up in the office on August 30. Continue telemetry? No
[2017-08-26] MEDS ORDERED: METOPROLOL TART25 M1 PO ×2 (14:03→14:40)
[2017-08-26] MEDS ORDERED: ELIQUIS5 M1 PO ×3 (14:10→14:40)
[2017-08-26 14:31] VITALS: BP 128/78
[2017-08-26] MEDS ORDERED: TEGRETOL XR200 M1 PO (14:40)
[2017-08-26] MEDS ORDERED: DILTIAZEM HCL90 MG PO (16:15)
== END 2017-08-26 16:45 | DRG 300 ==
LOC: ERH 12:31 → 1NO 16:24 → ERHI 16:24 → ENRESERV 20:09 → ENTRNSPT 21:12 → EDTRNSPTSTS 21:40 → EDTRNSPT 21:40 → 1NO 21:50 → CMPTRNSPT 22:00 → ENPENDDIS 08-26 14:38 → 1NO 08-26 16:45
PROVIDERS: Internal Medicine; Internal Medicine Adolescent Medicine; Internal Medicine Interventional Cardiology; Physician Assistant Medical
DX: I82.431 Acute embolism and thrombosis of right popliteal vein (principal); I50.32 Chronic diastolic (congestive) heart failure; I48.91 Unspecified atrial fibrillation; I11.0 Hypertensive heart disease with heart failure; I24.8 Other forms of acute ischemic heart disease; G50.0 Trigeminal neuralgia; H35.30 Unspecified macular degeneration; I51.7 Cardiomegaly; M81.0 Age-related osteoporosis without current pathological fracture; Z79.82 Long term (current) use of aspirin; M19.90 Unspecified osteoarthritis, unspecified site; Z66 Do not resuscitate; R00.0 Tachycardia, unspecified
CPT/HCPCS: 1NP; 36415; 36592; 71045; 84481; 93005; 93010; 93306; 96374; 96376; 99291; J0131; J1644; J3490